=== PATIENT | female | born 1995 | race African-American/Black ===

== ENCOUNTER 2019-11-11 12:10 | Emergency (ER) | payer MEDICAID ==
[~2019-11-11] VITALS: Ht 160 cm; Wt 97.0 kg
[2019-11-11] MEDS ORDERED: ONDANSETRON HCL 4MG/2ML INJ IV STA (14:36)
[2019-11-11] MEDS ORDERED: KETOROLAC 30MG/ML VIAL IV STA (14:36)
[2019-11-11] MEDS ORDERED: SODIUM CHLORIDE 0.9% 1,000 ML IV ONE (14:36)
[2019-11-11 15:46] LABS: CHLORIDE 106 mEq/L (98-107)
[2019-11-11 15:54] LABS: BASOPHILS % 0.7 % (0.0-2.0); EOSINOPHILS % 2.7 % (0.0-5.0); HEMATOCRIT. 38.8 % (36.0-48.0); HEMOGLOBIN. 13.3 g/dL (12.0-16.0); MEAN CORPUSCULAR HEMOGLOBIN 28.4 pg (28.0-32.0); MEAN CORPUSCULAR VOLUME 82.7 fL (81.0-99.0); MONOCYTES % 5.3 % (2.0-8.0); NEUTROPHILS % 68.3 % (40.0-76.0); PLATELET 403 x1000/uL (130-400); RED BLOOD CELL COUNT 4.69 mill/uL (4.2-5.4); RED CELL DISTRIBUTION WIDTH 13.6 % (11.6-14.6)
[2019-11-11 15:54] LABS: CLARITY URINE CLEAR (CLEAR); COLOR URINE YELLOW (YELLOW); KETONES URINE TRACE (NEGATIVE); LEUKOCYTE ESTERASE URINE NEGATIVE (NEGATIVE); NITRITE URINE NEGATIVE (NEGATIVE); OCCULT BLOOD URINE NEGATIVE (NEGATIVE); PROTEIN URINE NEGATIVE (NEGATIVE); SPECIFIC GRAVITY URINE 1.021 (1.005-1.030)
[2019-11-11 18:11] VITALS: BP 126/77
== END 2019-11-11 18:49 | disposition home or self-care (01) ==
LOC: ER 12:10
DX: R07.89 Other chest pain (principal); R10.13 Epigastric pain; R11.2 Nausea with vomiting, unspecified; F17.290 Nicotine dependence, other tobacco product, uncomplicated
CPT/HCPCS: 36415; 71045; 80053; 81003; 83690; 85025; 93005; 96361; 96374; 96375; 99285; J1885; J2405; J7030

== ENCOUNTER 2020-04-25 02:18 | Emergency (ER) | payer MEDICAID ==
[~2020-04-25] VITALS: Ht 162.6 cm; Wt 87.0 kg
[2020-04-25] MEDS ORDERED: ONDANSETRON 4MG ODT PO ONE (03:45)
[2020-04-25] MEDS ORDERED: ACETAMINOPHEN WITH CODEINE 300/30MG TABLET PO ONE (03:45)
[2020-04-25] MEDS ORDERED: CEFTRIAXONE SODIUM 250 MG/VIAL IM ONE (03:45)
[2020-04-25] MEDS ORDERED: DEXAMETHASONE 10 MG/ML VIAL IM ONE (03:45)
[2020-04-25 04:01] VITALS: BP 133/77
== END 2020-04-25 04:10 | disposition home or self-care (01) ==
LOC: ER 02:18
DX: J03.90 Acute tonsillitis, unspecified (principal)
CPT/HCPCS: 96372; 99284; J0696; J1100; Q0162

== ENCOUNTER 2021-03-30 21:45 | Emergency (ER) | payer MEDICAID ==
[~2021-03-30] VITALS: Ht 160 cm; Wt 102.0 kg
[2021-03-30] MEDS ORDERED: ACETAMINOPHEN 325MG TABLET PO ONE (22:45)
[2021-03-30 23:15] LABS: CHLORIDE 108 mEq/L (98-107)
[2021-03-30 23:18] LABS: CLARITY URINE CLEAR (CLEAR); COLOR URINE YELLOW (YELLOW); KETONES URINE NEGATIVE (NEGATIVE); LEUKOCYTE ESTERASE URINE 2+ (NEGATIVE); NITRITE URINE NEGATIVE (NEGATIVE); OCCULT BLOOD URINE NEGATIVE (NEGATIVE); PH URINE 6.5 (4.5-8.0); PROTEIN URINE NEGATIVE (NEGATIVE); SPECIFIC GRAVITY URINE 1.024 (1.005-1.030)
[2021-03-30 23:18] LABS: ETHANOL BLOOD < 10 mg/dL; INR 0.9; PROTHROMBIN TIME 9.8 sec (9.6-11.0)
[2021-03-30 23:20] LABS: BASOPHILS % 0.4 % (0.0-2.0); EOSINOPHILS % 5.6 % (0.0-5.0); HEMATOCRIT. 36.2 % (36.0-48.0); HEMOGLOBIN. 11.8 g/dL (12.0-16.0); LYMPHOCYTES % 32.3 % (20.0-50.0); MEAN CORPUSCULAR HEMOGLOBIN 26.3 pg (28.0-32.0); MEAN CORPUSCULAR VOLUME 80.2 fL (81.0-99.0); MEAN PLATELET VOLUME 7.5 fl (7.4-10.4); MONOCYTES % 6.8 % (2.0-8.0); NEUTROPHILS % 54.9 % (40.0-76.0); PLATELET 438 x1000/uL (130-400); RED BLOOD CELL COUNT 4.51 mill/uL (4.2-5.4); RED CELL DISTRIBUTION WIDTH 15.3 % (11.6-14.6)
[2021-03-30 23:30] LABS: *BARBITURATES SCREEN URINE NEGATIVE (NEGATIVE); *BENZODIAZEPINES SCREEN URINE NEGATIVE (NEGATIVE)
[2021-03-30 23:31] LABS: *AMPHETAMINES SCREEN URINE NEGATIVE (NEGATIVE); *COCAINE SCREEN URINE NEGATIVE (NEGATIVE); CANNABINOID URINE SCREEN NEGATIVE (NEGATIVE); METHADONE URINE SCREEN NEGATIVE (NEGATIVE); OPIATES URINE SCREEN NEGATIVE (NEGATIVE); PHENCYCLIDINE URINE SCREEN NEGATIVE (NEGATIVE)
[2021-03-30 23:37] LABS: B-HCG QUANTITATIVE 12403 mIU/mL (<3)
[2021-03-30] MEDS ORDERED: ACET-2708 MT (23:49)
[2021-03-30] MEDS ORDERED: CEPH500C2 MT (23:49)
[2021-03-31] MEDS ORDERED: CEPHALEXIN 250MG CAPSULE PO ONE (00:15)
[2021-03-31 00:19] VITALS: BP 131/81
== END 2021-03-31 00:20 | disposition home or self-care (01) ==
LOC: ER 21:45
DX: D72.829 Elevated white blood cell count, unspecified (principal)
CPT/HCPCS: 36415; 76801; 80053; 80305; 80320; 81003; 81025; 84702; 85025; 86850; 86900; 93971; 99285; G0480

== ENCOUNTER 2022-06-05 16:44 | Emergency (ER) | payer MEDICAID ==
[~2022-06-05] VITALS: Ht 160 cm; Wt 99.0 kg
[~2022-06-05 16:44] MED LIST: ACET-2708 MT; CEPH500C2 MT
[2022-06-05 17:04] VITALS: BP 128/84
== END 2022-06-06 02:00 | disposition left against medical advice (07) ==
LOC: ER 16:44
DX: Z53.21 Procedure and treatment not carried out due to patient leaving prior to being seen by health care provider (principal)